=== PATIENT | male | born 1995 | race Caucasian/White ===

== ENCOUNTER 2018-04-18 00:42 | Emergency (ER) | payer OTHER ==
[2018-04-18] MEDS ORDERED: Tetan/Diph/Pertus SYR(Tdap)* 0.5 ML SYR(BOOSTRIX) use SYR IM ONE (01:20)
--- NOTE | 2018-04-18 01:44 | ED ---
Laceration/Wound HPI - HPI Summary HPI Summary: Patient complains of laceration to dorsal right thumb from moving refrigerator. Denies any other pain, injury, symptoms. No anti-coagulant. Tetanus status unknown. - History of Current Complaint Stated Complaint: RIGHT FINGER LAC Time Seen by Provider: 04/18/18 00:59 Hx Obtained From: Patient Mechanism of Injury: Sharp/Blunt Trauma Aggravating: Nothing Alleviating: Nothing Onset Severity: Mild Current Severity: Mild Pain Intensity: 1 Pain Scale Used: 0-10 Numeric Associated Signs & Symptoms: Negative - Allergy/Home Medications Allergies/Adverse Reactions: Allergies Allergy/AdvReac Type Severity Reaction Status Date / Time No Known Allergies Allergy Verified 04/18/18 00:51 PMH/Surg Hx/FS Hx/Imm Hx Endocrine/Hematology History: Denies: Hx Anticoagulant Therapy Cardiovascular History: Denies: Hx Cardiac Arrest History: Denies: Hx Dialysis Neurological History: Denies: Hx CVA Psychiatric History: Denies: Hx Autism Infectious Disease History: No Infectious Disease History: Denies: Traveled Outside the [place] in Last 30 Days - Family History Known Family History: Positive: Non-Contributory - Social History Alcohol Use: None Substance Use Type: Reports: None Hx Tobacco Use: Yes Review of Systems Constitutional: Negative Eyes: Negative ENT: Negative Cardiovascular: Negative Respiratory: Negative Gastrointestinal: Negative Genitourinary: Negative Musculoskeletal: Negative Skin: Other Neurological: Negative Psychological: Normal All Other Systems Reviewed And Are Negative: Yes Physical Exam - Summary Physical Exam Summary: Laceration to dorsal surface of right thumb after DIP joint. Flexion and extension intact. PMS intact distally. Triage Information Reviewed: Yes Vital Signs On Initial Exam: Initial Vitals Temp Pulse Resp BP Pulse Ox 99.7 F 93 16 128/80 97 04/18/18 00:49 04/18/18 00:49 04/18/18 00:49 04/18/18 00:49 04/18/18 00:49 Vital Signs Reviewed: Yes Appearance: Positive: Well-Appearing Skin: Positive: Warm Head/Face: Positive: Normal Head/Face Inspection Eyes: Positive: Normal Neck: Positive: Supple Respiratory/Lung Sounds: Positive: Clear to Auscultation Cardiovascular: Positive: Normal Abdomen Description: Positive: Nontender Musculoskeletal: Positive: Normal Neurological: Positive: Normal Psychiatric: Positive: Normal AVPU Assessment: Alert - [place] Coma Scale Best Eye Response: 4 - Spontaneous Best Motor Response: 6 - Obeys Commands Best Verbal Response: 5 - Oriented Coma Scale Total: 15 Procedures - Laceration/Wound Repair 1 Location: upper extremity Description: Linear Length, Depth and Shape: 2cm x .25cm Betadine Prep?: Yes Irrigated w/ Saline (ccs): 100 Laceration/Wound Explored: clean Closure: Skin Adhesive, SteriStrips Debridement: minimal Number of Sutures: 0 Layer Closure?: No Sterile Dressing Applied?: No Diagnostics - Vital Signs Vital Signs Temp Pulse Resp BP Pulse Ox 04/18/18 00:49 99.7 F 93 16 128/80 97 - Laboratory Lab Statement: Any lab studies that have been ordered have been reviewed, and results considered in the medical decision making process. Laceration Repair Course/Dx - Course Course Of Treatment: Patient complains of laceration to dorsal right thumb from moving refrigerator. Denies any other pain, injury, symptoms. No anti- coagulant. Tetanus status unknown. Physical exam:Laceration to dorsal surface of right thumb after DIP joint. Flexion and extension intact. PMS intact distally. Laceration repaired with skin adhesive and Steri-Strips. Tetanus booster administered. - Clinical Impression Provider Diagnoses: Laceration Discharge - Sign-Out/Discharge Documenting (check all that apply): Patient Departure - Discharge Plan Condition: Stable Disposition: HOME Patient Education Materials: Laceration (ED), Finger Laceration (ED) Referrals: No Primary Care Phys,NOPCP [Primary Care Provider] - Additional Instructions: Wash hand with warm running water and soap. Keep thumb clean and protected. Do not submerge. Return to the ED for any new or worsening symptoms - Billing Disposition and Condition Condition: STABLE Disposition: Home
[2018-04-18 01:51] VITALS: BP 109/78
== END 2018-04-18 02:10 | disposition home or self-care (01) ==
LOC: ED 00:42
DX: S61.011A Laceration without foreign body of right thumb without damage to nail, initial encounter (principal); W45.8XXA Other foreign body or object entering through skin, initial encounter; Y92.9 Unspecified place or not applicable
CPT/HCPCS: 12001; 90471; 90715; 99282